=== PATIENT | female | born 1995 | race African-American/Black ===

== ENCOUNTER 2017-01-25 22:07 | Emergency (ER) | payer OTHER ==
[~2017-01-25] VITALS: Ht 170.2 cm; Wt 63.0 kg
[2017-01-25 22:17] VITALS: TEMP 37.1; Ht 170.2 cm; Wt 63.0 kg
[2017-01-25] MEDS ORDERED: ASPI-390 PO (22:50)
[2017-01-25] MEDS ORDERED: ACET-1256 PO (22:50)
[2017-01-25] MEDS ORDERED: MULT-513 PO (22:50)
[2017-01-25 23:09] LABS: BASO % 0.4 %; BASO ABS # 0.03 K/uL (0-0.2); COMPLETE YES; EOS % 1.4 %; IG% 0.3 %; LYMPH ABS # 2.44 K/uL (1.2-3.4); MEAN CORPUSCULAR HEMOGLOBIN 28.4 pg (25-34); MEAN CORPUSCULAR HGB CONC 32.3 g/dl (32-36); MEAN PLATELET VOLUME 11.2 fL (7.4-10.4); MONO % 6.2 %; NEUT % 60.7 %; PLATELET COUNT 210 K/uL (130-400); RED BLOOD COUNT 4.43 M/uL (4.2-5.4); WHITE BLOOD COUNT 7.86 K/uL (4.8-10.8)
[2017-01-25 23:27] LABS: ALT/SGPT 13 U/L (12-78); BLOOD UREA NITROGEN 10 mg/dl (7-18); BUN/CREATININE RATIO 14.9 (10-20); CALCIUM 9.4 mg/dl (8.5-10.1); CARBON DIOXIDE 27 mmol/L (21-32); CHLORIDE 105 mmol/L (98-107); GLUCOSE 75 mg/dl (70-99); POTASSIUM 3.7 mmol/L (3.5-5.1); SODIUM 141 mmol/L (136-145)
[2017-01-25 23:29] LABS: URINE APPEARANCE CLEAR (CLEAR); URINE BILIRUBIN NEG (NEG); URINE COLOR YELLOW; URINE NITRITE NEG (NEG); URINE PH 6.5 (4.5-7.5); URINE SPECIFIC GRAVITY 1.026 (1.000-1.030); UROBILINOGEN NEG (NEG); ZZUR CULT IF INDIC CLEAN CATCH NO
[2017-01-25 23:30] LABS: ALKALINE PHOSPHATASE 72 U/L (45-117); AST/SGOT 16 U/L (15-37)
[2017-01-25 23:41] LABS: MANUAL MICROSCOPIC REQUIRED? NO; REVIEW REQ? NO
[2017-01-25] MEDS ORDERED: OPTIRAY 320 IV PRN (23:45)
[2017-01-25 23:46] LABS: PREG INTERNAL NEGATIVE QC NEG CLEAR BACKGROUND; PREG INTERNAL POSITIVE QC POS CONTROL LINE
--- NOTE | 2017-01-26 01:31 | EMERGENCY ROOM VISIT NOTE ---
History First contact with patient: 22:21 Chief Complaint: ABDOMINAL PAIN Stated Complaint: ABD PAIN Nursing Triage Summary: pt reports lump to left upper abdomen. pt was at the ER over thanksgiving to have it checked out but did not have any scans done. pt reports sharp lower abd pain for the past few days. denies N/V/D. History of Present Illness The patient is a 21 year old female who presents to the Emergency Room with complaints of left upper abdominal discomfort that is enlarged for the past several months and now complains of suprapubic lower abdominal pain for the past 2 days described as aching, ranging in severity 5 out of 10. nothing makes it better or worse. Patient had gonorrhea 3 months ago and was supposed to get rechecked to make sure this cleared. Patient denies chest pain, dyspnea , nausea, vomiting, diarrhea, vaginal itching or discharge, vaginal pain, urinary symptoms, back pain, flank pain. No prior surgeries. She states she does not feel at risk for new STIs. Review of Systems See HPI for pertinent positives & negatives. A total of 10 systems reviewed and were otherwise negative. Past Medical/Surgical History Oral surgery Social History Smoking Status: Never Smoker Smokeless Tobacco Use: No Alcohol Use: occasionally Drug Use: none Marital Status: single Occupation Status: [employer] student Current/Historical Medications Scheduled Hmbcmtq-Nvktuwwfpwaap-Ihcstwus (Excedrin Migraine), 2 TABS PO PRN UD Multivitamins/Minerals (Mvi With Minerals), 1 TAB PO DAILY Scheduled PRN Acetaminophen (Tylenol), 1,000 MG PO Q6 PRN for Headache or Pain Ibuprofen (Advil), 400 MG PO Q6 PRN for Pain Allergies Coded Allergies: No Known Allergies (Unverified , 01/25/17) Physical Exam Vital Signs Date Time Temp Pulse Resp B/P Pulse Ox O2 Delivery O2 Flow Rate FiO2 01/25/17 23:54 75 18 119/72 100 Room Air 01/25/17 22:17 37.1 82 16 128/82 100 Room Air Physical Exam VITALS: Vitals are noted on the nurse's note and reviewed by myself. Vital signs stable. GENERAL: Pleasant female, in no acute distress, nondiaphoretic, well-developed well-nourished. SKIN: The skin was without rashes, erythema, edema, or bruising. There is no tenting of the skin. Capillary reflex less than 2 seconds. HEAD: Normocephalic atraumatic. EARS: External auditory canals clear, tympanic membranes pearly burgess without erythema or effusion bilaterally. EYES: Pupils equal round and reactive to light and accommodation. Conjunctivae without injection, sclerae without icterus. Extraocular movements intact. NOSE: Patent, turbinates without inflammation or discharge. MOUTH: Mucous membranes moist. Pharynx without erythema or exudate. Uvula midline. Airway patent. Tongue does not deviate. NECK: Supple without nuchal rigidity. No lymphadenopathy. No thyromegaly. Cervical spine is nontender. No JVD. HEART: Regular rate and rhythm without murmurs gallops or rubs. LUNGS: Clear to auscultation bilaterally without wheezes, rales or rhonchi. No dullness to percussion. No retractions or accessory muscle use. ABDOMEN: Positive bowel sounds x 4. Normal tympanic percussion. Soft, left upper quadrant slightly enlarged and tender to palpation lower superpubic area, no CVA tenderness Vieira sign negative. No guarding or rebound tenderness. exam: Normal external female genitalia, minimal white discharge in the fall, no CMT or adnexal tenderness. Vp Respiratory present. Cultures taken and sent. MUSCULOSKELETAL: No muscle atrophy, erythema, or edema noted. NEURO: Patient was alert and oriented to person place and time. Normal sensation to light and sharp touch. No focal neurological deficits. Medical Decision & Procedures Laboratory Results 01/25/17 22:40 Red Blood Count 4.43, Mean Corpuscular Volume 88.0, Mean Corpuscular Hemoglobin 28.4, Mean Corpuscular Hemoglobin Concent 32.3, Mean Platelet Volume 11.2, Neutrophils (%) (Auto) 60.7, Lymphocytes (%) (Auto) 31.0, Monocytes (%) (Auto) 6.2, Eosinophils (%) (Auto) 1.4, Basophils (%) (Auto) 0.4, Neutrophils # (Auto) 4.77, Lymphocytes # (Auto) 2.44, Monocytes # (Auto) 0.49, Eosinophils # (Auto) 0.11, Basophils # (Auto) 0.03 01/25/17 22:40 Test 01/25/17 22:35 01/25/17 22:40 01/25/17 22:52 Urine Color YELLOW Urine Appearance CLEAR (CLEAR) Urine pH 6.5 (4.5-7.5) Urine Specific Mize 1.026 (1.000-1.030) Urine Protein NEG (NEG) Urine Glucose (UA) NEG (NEG) Urine Ketones TRACE (NEG) Urine Occult Blood NEG (NEG) Urine Nitrite NEG (NEG) Urine Bilirubin NEG (NEG) Urine Urobilinogen NEG (NEG) Urine Leukocyte Esterase NEG (NEG) White Blood Count 7.86 K/uL (4.8-10.8) Red Blood Count 4.43 M/uL (4.2-5.4) Hemoglobin 12.6 g/dL (12.0-16.0) Hematocrit 39.0 % (37-47) Mean Corpuscular Volume 88.0 fL (80-100) Mean Corpuscular Hemoglobin 28.4 pg (25-34) Mean Corpuscular Hemoglobin Concent 32.3 g/dl (32-36) Platelet Count 210 K/uL (130-400) Mean Platelet Volume 11.2 fL (7.4-10.4) Neutrophils (%) (Auto) 60.7 % Lymphocytes (%) (Auto) 31.0 % Monocytes (%) (Auto) 6.2 % Eosinophils (%) (Auto) 1.4 % Basophils (%) (Auto) 0.4 % Neutrophils # (Auto) 4.77 K/uL (1.4-6.5) Lymphocytes # (Auto) 2.44 K/uL (1.2-3.4) Monocytes # (Auto) 0.49 K/uL (0.11-0.59) Eosinophils # (Auto) 0.11 K/uL (0-0.5) Basophils # (Auto) 0.03 K/uL (0-0.2) RDW Standard Deviation 43.8 fL (36.4-46.3) RDW Coefficient of Variation 13.6 % (11.5-14.5) Immature Granulocyte % (Auto) 0.3 % Immature Granulocyte # (Auto) 0.02 K/uL (0.00-0.02) Anion Gap 9.0 mmol/L (3-11) Est Creatinine Clear Calc Drug Dose 124.7 ml/min Estimated GFR () 144.6 Estimated GFR (Non- 124.7 BUN/Creatinine Ratio 14.9 (10-20) Calcium Level 9.4 mg/dl (8.5-10.1) Total Bilirubin 0.3 mg/dl (0.2-1) Direct Bilirubin < 0.1 mg/dl (0-0.2) Aspartate Amino Transf (AST/SGOT) 16 U/L (15-37) Alanine Aminotransferase (ALT/SGPT) 13 U/L (12-78) Alkaline Phosphatase 72 U/L (45-117) Total Protein 8.4 gm/dl (6.4-8.2) Albumin 4.2 gm/dl (3.4-5.0) Lipase 184 U/L (73-393) Human Chorionic Gonadotropin, Qual NEG (NEG) Monoscreen NEG (NEG) ED Course Prior records/ancillary studies reviewed. Triage Nursing notes reviewed. The patient's history was concerning for abdominal pain. Differential diagnosis: Etiologies such as salpingitis, , ectopic , incomplete , septic , ruptured ovarian cyst, ovarian torsion, Mittelschmerz , endometritis, dysmenorrhea, appendicitis, PID, diverticulitis, PUD, biliary pathology, UTI, pancreatitis, obstruction, mesenteric ischemia, aortic pathology , infections, inflammatory bowel disease, renal colic, as well as others were entertained. Physical examination findings: As above. ER treatment provided: iv fluids On reassessment the patient felt better. Diagnostics interpreted by me: The labs revealed negative hCG. No worrisome leukocytosis or electrolyte abnormality. Imaging studies: CT ABDOMEN & PELVIS: 3 cm cystic lesion right ovary May correlate further with pelvic ultrasound Normal caliber appendix without secondary signs No bowel dilation or free air Asymmetrically longer appearing left lower ribs and possible mild stranding at the costochondral junction at the left upper quadrant, nonspecific Radiologist: Pablo Boucher M.D. US PELVIC/ENDOVA mm endometrial stripe Left ovary within limits 3.7 x 2.7 x 3.2 cm complex cystic lesion right ovary may represent hemorrhagic cyst or endometrioma There is evidence of vascular flow to the right ovarian tissue No evidence of adnexal mass or free fluid Radiologist: Pablo Boucher M.D. Exam and history seems consistent with hemorrhagic cyst and asymmetric lower left ribs. Patient was advised repeat pelvic ultrasound in 6 weeks for resolution of cyst. She is advised follow-up health services in a few days or here in the ER sooner for abdominal pain, fevers, vomiting, worsening signs or symptoms or as needed. She is advised to obtain her culture results from health services or call back to the ER 3 days.By the evaluation outlined above emergent etiologies such as appendicitis, diverticulitis, PUD, biliary pathology , UTI, pancreatitis, obstruction, mesenteric ischemia, aortic pathology, infections, inflammatory bowel disease, renal colic, as well as others were deemed relatively unlikely. The pt informed about the findings as listed above. All questions were answered and pleased with the treatment. Return instructions were outlined and the patient was discharged in stable condition. Referral: The patient was referred back to their primary care physician for follow-up in 2 to 3 days for a recheck of the current condition. case reviewed with my Attending. Medical Decision as above Impression Primary Impression: Right ovarian cyst Additional Impression: asymmetric rib, left Departure Information Dispostion Home / Self-Care Condition GOOD Referrals No Doctor, Assigned (PCP) Patient Instructions My [facility] Additional Instructions Ibuprofen(Motrin, Advil) may be used for fever or pain. Use 600mg every six hours as needed. Take with food. Avoid using more than 2400mg in a 24 hour period. Do not use 2400mg per day for more than three consecutive days without physician direction. Prolonged inappropriate use can lead to stomach upset or ulcers. (AND/OR) Acetaminophen(Tylenol) may be used for fever or pain. Use 1000mg every six hours as needed. Avoid using more than 3000mg in a 24 hour period. Rest and drink plenty of fluids as tolerated. Continue current medications. Avoid strenuous activities and anything that worsens your pain. Resume normal activities once your symptoms resolve. Repeat pelvic ultrasound in 6 weeks for resolution of cyst. You can Follow-up with OB for this. Return to the ER immediately for worsening or persistent abdominal pain, vomiting, fevers, chest pains, difficulty breathing, worsening of your condition , or as needed. Follow up with health services in 3-4 days for a recheck of your current condition and for culture results or call back to the ER in 3 days. Recommend to abstain from intercourse until culture results are reviewed. Problem Qualifiers
[2017-01-26 01:38] VITALS: BP 121/76; PULSE 79; O2SAT 100
--- NOTE | 2017-01-26 07:19 | DIAGNOSTIC IMAGING REPORT ---
ULTRASOUND OF THE PELVIS CLINICAL HISTORY: Suprapubic pelvic pain. COMPARISON STUDY: No priors. TECHNIQUE: Real-time, grayscale, and color flow sonography of the pelvis is performed both transabdominally and endovaginally. Images are reviewed in the transverse and longitudinal planes. FINDINGS: Uterus: The uterus is normal in size and echotexture, measuring 7.8 x 3.1 x 4.2 cm. Nabothian cysts are incidentally noted in the cervix. Endometrium: The endometrium is normal in appearance, and the endometrial stripe is normal in thickness measuring up to 0.9 cm. Ovaries: The ovaries are normal in size and morphology. The right ovary measures 4.3 x 3.0 x 4.5 cm and the left ovary measures 3.1 x 1.9 x 2.2 cm. There are bilateral ovarian follicles. A 3.7 x 2.7 x 3.2 cm complex cystic lesion is identified in the right ovary. Normal Doppler waveforms are shown within both ovaries. Pelvis: There is no free fluid in the cul-de-sac. No concerning adnexal lesion is seen. IMPRESSION: 1. There is a 3.2 cm complex cystic lesion identified in the right ovary. This likely represents a complex/hemorrhagic cyst or less likely an endometrioma. Precautionary sonographic follow-up in 2-3 menstrual cycles is recommended to document resolution. 2. There is no sonographic evidence of ovarian torsion at the time of examination. 3. The left ovary is normal in appearance. Electronically signed by: Dong Covarrubias M.D. 01/26/2017 7:18 AM Dictated Date/Time: 01/26/2017 7:16 AM
--- NOTE | 2017-01-26 07:34 | DIAGNOSTIC IMAGING REPORT ---
CT SCAN OF THE ABDOMEN AND PELVIS WITH IV CONTRAST CLINICAL HISTORY: Lower abdominal pain. COMPARISON STUDY: Pelvic ultrasound dated 01/25/2017. TECHNIQUE: Following the IV administration of 116 cc of Optiray 320, CT scan of the abdomen and pelvis is performed from the lung bases to the proximal femora. Images are reviewed in the axial, sagittal, and coronal planes. IV contrast was administered without complication. Automated dose control exposure was utilized. CT DOSE: 277.83 mGy.cm FINDINGS: Lung bases: The heart is normal in size and without pericardial effusion. The lung bases are clear. Liver: The contrast-enhanced liver is normal in size, contour, and attenuation. There is no intrahepatic biliary ductal dilatation. The hepatic veins and portal veins are patent. Gallbladder: Unremarkable. Spleen: Normal in size and attenuation. Pancreas: Unremarkable. Adrenal glands: Unremarkable. Kidneys: The contrast enhanced kidneys are normal in size and without hydronephrosis. The kidneys enhance symmetrically. Abdominal vasculature: The abdominal aorta is normal in course and caliber. Bowel: The small bowel and colon are normal in course and caliber. Moderate fecal retention is seen throughout the colon. The appendix is well-visualized and normal. Peritoneum: There is no intraperitoneal free air or abdominal ascites. There is a small fat-containing umbilical hernia. A naval piercing is noted. Lymphadenopathy: None. Pelvic viscera: The bladder, uterus, and adnexa are normal as visualized. There are bilateral ovarian follicles. A 3.0 cm dominant follicle is noted on the right. Skeletal structures: No lytic or blastic lesions are seen. IMPRESSION: 1. There are no acute infectious or inflammatory findings in the abdomen or pelvis. 2. Moderate constipation. Electronically signed by: Dong Covarrubias M.D. 01/26/2017 7:33 AM Dictated Date/Time: 01/26/2017 7:23 AM
[2017-01-30 11:56] LABS: CHLAMYDIA TRACH RNA*** DETECTED (NOT DETECTED); GC (NEIS GONORRHOEAE)RNA** NOT DETECTED (NOT DETECTED)
--- NOTE | 2017-01-31 15:00 | Pharmacy Progress Note ---
ED Pharmacist Culture FollowUp Date of Service: Jan 31, 2017. Called patient regarding positive Chlamydia trachomatis serology. Informed of result. Prescription for azithromycin 1 g po once called to [facility] at the patient's request. Counseled to abstain from intercourse x2 weeks after antibiotic, refer partner(s) for evaluation, and re-test with outpatient provider in 3 months. Counseled to see provider sooner for worsening pelvic pain. Patient acknowledged understanding. Case discussed with Dr. Solitario, who is the prescribing provider.
== END 2017-01-26 01:38 | disposition home or self-care (01) ==
LOC: C.EDB 22:11 → C.EDC 01-26 01:38
DX: N83.201 Unspecified ovarian cyst, right side (principal); M89.8X9 Other specified disorders of bone, unspecified site

== ENCOUNTER 2017-02-01 03:54 | Emergency (ER) | payer OTHER ==
[~2017-02-01] VITALS: Ht 170.2 cm; Wt 65.5 kg
[~2017-02-01 03:54] MED LIST: ACET-1256 PO; ASPI-390 PO; MULT-513 PO
[2017-02-01 03:57] VITALS: Ht 170.2 cm; Wt 65.5 kg
[2017-02-01] MEDS ORDERED: LIDOCAINE HCL 2% VISC SOLN 20 ML UDC PO STA (04:15)
[2017-02-01] MEDS ORDERED: ALUMINUM/MAGNESIUM SUSP 30 ML UDC PO STA (04:15)
[2017-02-01] MEDS ORDERED: SUCRALFATE 1 GM/10 ML UDC PO STA (05:04)
[2017-02-01 05:33] LABS: BASO % 0.4 %; BASO ABS # 0.03 K/uL (0-0.2); COMPLETE YES; EOS % 1.3 %; HEMATOCRIT 36.3 % (37-47); IG% 0.1 %; LYMPH % 30.9 %; LYMPH ABS # 2.15 K/uL (1.2-3.4); MEAN CELL VOLUME 86.6 fL (80-100); MEAN CORPUSCULAR HEMOGLOBIN 28.4 pg (25-34); MEAN CORPUSCULAR HGB CONC 32.8 g/dl (32-36); MEAN PLATELET VOLUME 10.8 fL (7.4-10.4); MONO % 7.8 %; NEUT % 59.5 %; PLATELET COUNT 203 K/uL (130-400); RED BLOOD COUNT 4.19 M/uL (4.2-5.4); WHITE BLOOD COUNT 6.95 K/uL (4.8-10.8)
[2017-02-01 05:51] LABS: BUN/CREATININE RATIO 18.5 (10-20); CALCIUM 8.5 mg/dl (8.5-10.1); CREATININE 0.67 mg/dl (0.60-1.20); POTASSIUM 4.1 mmol/L (3.5-5.1)
[2017-02-01] MEDS ORDERED: PANTOprazole SOD 40 MG TAB PO STA (05:55)
[2017-02-01] MEDS ORDERED: PANT40TA PO (05:58)
--- NOTE | 2017-02-01 05:58 | EMERGENCY ROOM VISIT NOTE ---
History First contact with patient: 04:05 Chief Complaint: ABDOMINAL PAIN Stated Complaint: STOMACH ACHE Nursing Triage Summary: Patient reports abdominal pain for the past hour. Denies N/V/D. History of Present Illness The patient is a 21 year old female who presents to the Emergency Room with complaints of epigastric discomfort with sour taste in stomach with burning sensation after eating hot wings and fries with some alcohol tonight. Patient denies chest pain, dyspnea, fever, chills, nausea, vomiting, diarrhea, black or blood in her stool. No other complains per patient. Review of Systems See HPI for pertinent positives & negatives. A total of 10 systems reviewed and were otherwise negative. Past Medical/Surgical History None Social History Smoking Status: Never Smoker Alcohol Use: occasionally Drug Use: none Marital Status: single Occupation Status: [employer] student Current/Historical Medications Scheduled Mrqxolz-Voozhjtvrklwc-Ginoqbmr (Excedrin Migraine), 2 TABS PO PRN UD Multivitamins/Minerals (Mvi With Minerals), 1 TAB PO DAILY Scheduled PRN Acetaminophen (Tylenol), 1,000 MG PO Q6 PRN for Headache or Pain Ibuprofen (Advil), 400 MG PO Q6 PRN for Pain Allergies Coded Allergies: No Known Allergies (Unverified , 01/25/17) Physical Exam Vital Signs Date Time Temp Pulse Resp B/P Pulse Ox O2 Delivery O2 Flow Rate FiO2 02/01/17 05:33 76 18 106/51 94 Room Air 02/01/17 03:57 37.1 93 18 109/70 98 Room Air Physical Exam VITALS: Vitals are noted on the nurse's note and reviewed by myself. Vital signs stable. GENERAL: Pleasant female, in no acute distress, nondiaphoretic, well-developed well-nourished. SKIN: The skin was without rashes, erythema, edema, or bruising. There is no tenting of the skin. Capillary reflex less than 2 seconds. HEAD: Normocephalic atraumatic. EARS: External auditory canals clear, tympanic membranes pearly burgess without erythema or effusion bilaterally. EYES: Pupils equal round and reactive to light and accommodation. Conjunctivae without injection, sclerae without icterus. Extraocular movements intact. NOSE: Patent, turbinates without inflammation or discharge. MOUTH: Mucous membranes moist. Pharynx without erythema or exudate. Uvula midline. Airway patent. Tongue does not deviate. NECK: Supple without nuchal rigidity. No lymphadenopathy. No thyromegaly. Cervical spine is nontender. No JVD. HEART: Regular rate and rhythm without murmurs gallops or rubs. LUNGS: Clear to auscultation bilaterally without wheezes, rales or rhonchi. No dullness to percussion. No retractions or accessory muscle use. ABDOMEN: Positive bowel sounds x 4. Normal tympanic percussion. Soft, nontender, without masses or organomegaly. Vieira sign negative. No guarding or rebound tenderness. No CVA tenderness MUSCULOSKELETAL: No muscle atrophy, erythema, or edema noted. NEURO: Patient was alert and oriented to person place and time. Normal sensation to light and sharp touch. No focal neurological deficits. Medical Decision & Procedures Laboratory Results 02/01/17 05:20 Red Blood Count 4.19, Mean Corpuscular Volume 86.6, Mean Corpuscular Hemoglobin 28.4, Mean Corpuscular Hemoglobin Concent 32.8, Mean Platelet Volume 10.8, Neutrophils (%) (Auto) 59.5, Lymphocytes (%) (Auto) 30.9, Monocytes (%) (Auto) 7.8, Eosinophils (%) (Auto) 1.3, Basophils (%) (Auto) 0.4, Neutrophils # (Auto) 4.13, Lymphocytes # (Auto) 2.15, Monocytes # (Auto) 0.54, Eosinophils # (Auto) 0.09, Basophils # (Auto) 0.03 02/01/17 05:20 Test 02/01/17 05:20 White Blood Count 6.95 K/uL (4.8-10.8) Red Blood Count 4.19 M/uL (4.2-5.4) Hemoglobin 11.9 g/dL (12.0-16.0) Hematocrit 36.3 % (37-47) Mean Corpuscular Volume 86.6 fL (80-100) Mean Corpuscular Hemoglobin 28.4 pg (25-34) Mean Corpuscular Hemoglobin Concent 32.8 g/dl (32-36) Platelet Count 203 K/uL (130-400) Mean Platelet Volume 10.8 fL (7.4-10.4) Neutrophils (%) (Auto) 59.5 % Lymphocytes (%) (Auto) 30.9 % Monocytes (%) (Auto) 7.8 % Eosinophils (%) (Auto) 1.3 % Basophils (%) (Auto) 0.4 % Neutrophils # (Auto) 4.13 K/uL (1.4-6.5) Lymphocytes # (Auto) 2.15 K/uL (1.2-3.4) Monocytes # (Auto) 0.54 K/uL (0.11-0.59) Eosinophils # (Auto) 0.09 K/uL (0-0.5) Basophils # (Auto) 0.03 K/uL (0-0.2) RDW Standard Deviation 42.8 fL (36.4-46.3) RDW Coefficient of Variation 13.4 % (11.5-14.5) Immature Granulocyte % (Auto) 0.1 % Immature Granulocyte # (Auto) 0.01 K/uL (0.00-0.02) Anion Gap 4.0 mmol/L (3-11) Est Creatinine Clear Calc Drug Dose 130.3 ml/min Estimated GFR () 146.7 Estimated GFR (Non- 126.5 BUN/Creatinine Ratio 18.5 (10-20) Calcium Level 8.5 mg/dl (8.5-10.1) Medications Administered Medications (Trade) Dose Ordered Sig/Willam Route Start Time Stop Time Status Last Admin Dose Admin Lidocaine HCl (Viscous Lidocaine 2% Soln) 10 ml NOW STAT PO 02/01/17 04:15 02/01/17 04:16 DC 02/01/17 04:24 10 ML Al Hydroxide/Mg Hydroxide (Maalox Susp) 30 ml NOW STAT PO 02/01/17 04:15 02/01/17 04:16 DC 02/01/17 04:24 30 ML Sucralfate (Carafate Susp) 1 gm NOW STAT PO 02/01/17 05:04 02/01/17 05:05 DC 02/01/17 05:31 1 GM ED Course Prior records/ancillary studies reviewed. Triage Nursing notes reviewed. Additional history obtained from friend The patient's history was concerning for epigastric discomfort. Differential diagnosis: Etiologies such as reflux, gastritis, appendicitis, diverticulitis, PUD, biliary pathology, UTI, pancreatitis, obstruction, mesenteric ischemia, aortic pathology, infections, inflammatory bowel disease, renal colic, as well as others were entertained. Physical examination findings: As above. ER treatment provided: GI cocktail On reassessment the patient felt better. Diagnostics interpreted by me: mild anemia, no worrisome electrolyte abnormality Exam and history seem consistent with gastritis, GERD. Patient fell 100% after being medicated as above. She did not have an acute abdomen on exam. She declined further workup and I felt this is reason all. She is advised take omeprazole for next 2 weeks and avoid acidic foods and excessive amounts of coffee. She is advised to follow-up health services in a few days or here in the ER sooner for abdominal pain, fevers, vomiting, black or blood in the stool , worsening signs or symptoms or as needed. She is advised to try Maalox and or Zantac for breakthrough symptoms. By the evaluation outlined above emergent etiologies such as appendicitis, diverticulitis, PUD, biliary pathology, UTI, pancreatitis, obstruction, mesenteric ischemia, aortic pathology, infections, inflammatory bowel disease, renal colic, as well as others were deemed relatively unlikely. The pt informed about the findings as listed above. All questions were answered and pleased with the treatment. Return instructions were outlined and the patient was discharged in stable condition. Outpatient prescription management: Protonix Referral: The patient was referred back to their primary care physician for follow-up in 2 to 3 days for a recheck of the current condition. Case reviewed with my attending Medical Decision As above Impression Primary Impression: GERD (gastroesophageal reflux disease) Departure Information Dispostion Home / Self-Care Condition GOOD Referrals No Doctor, Assigned (PCP) Patient Instructions My [facility] Additional Instructions Protonix 40 m tablet daily for the next 2 weeks. Avoid spicy or acidic foods. You can try Maalox or Zantac for acute relief of symptoms. Rest and drink plenty of fluids as tolerated. Continue current medications. Return to the ER immediately for worsening or persistent abdominal pain, vomiting, fevers, chest pains, difficulty breathing, worsening of your condition , or as needed. Follow up with your primary physician in 2-3 days for a recheck of your current condition. Problem Qualifiers Primary Impression: GERD (gastroesophageal reflux disease) Esophagitis presence: esophagitis presence not specified Qualified Codes: K21.9 - Gastro-esophageal reflux disease without esophagitis
[2017-02-01 06:03] VITALS: BP 106/51; PULSE 76; TEMP 37.1; O2SAT 94
== END 2017-02-01 06:05 | disposition home or self-care (01) ==
LOC: C.EDB 03:55
DX: K21.9 Gastro-esophageal reflux disease without esophagitis (principal)

== ENCOUNTER 2017-08-13 16:06 | Emergency (ER) | payer OTHER ==
[~2017-08-13] VITALS: Ht 170.2 cm; Wt 64.4 kg
[2017-08-13 16:29] VITALS: BP 136/88; PULSE 74; TEMP 37.3; O2SAT 99; Ht 170.2 cm; Wt 64.4 kg
--- NOTE | 2017-08-13 17:17 | EMERGENCY ROOM VISIT NOTE ---
History First contact with patient: 16:36 Chief Complaint: ANKLE PAIN Stated Complaint: LF ACHILLES WITH SEVERE PAIN History of Present Illness The patient is a 21 year old female who presents to the Emergency Room with complaints of a 2 week history of right Achilles pain. The patient does not recall an inciting event like rolling her ankle or any trauma to the ankle. She states that the pain continually worsened throughout the week until it was unbearable and was unable to walk to classes due to the discomfort. She says that last week at its worst it was a 9/10 pain. She has tried Ibuprofen 600mg BID, icing, heating, and resting with no improvement. 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 She denies ever hearing any popping sensation. She does think there has been increased swelling over the left Achilles compared to the right. Review of Systems See HPI for pertinent positives and negatives. A total of ten systems were reviewed and were otherwise negative. 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 Oropharynx unremarkable. EYES: Normal conjunctiva. Sclera non-icteric. NECK: Supple. No nuchal rigidity. FROM. No JVD. RESPIRATORY: Clear to auscultation. CARDIAC: Regular rate, normal rhythm. Extremities warm and well perfused. Pulses equal. ABDOMEN: Soft, non-distended. No tenderness to palpation. No rebound or guarding. No masses. RECTAL: Deferred. MUSCULOSKELETAL: Chest examination reveals no tenderness. The back is symmetrical on inspection without obvious abnormality. There is no CVA tenderness to palpation. No joint edema. LOWER EXTREMITIES: Calves are equal size bilaterally and non-tender. No edema. No discoloration. Left Marie test negative. Some acute swelling (knot) over the midpoint of the Achilles tendon. Full ROM of the left ankle. Acute tenderness over the knot of the left Achilles. NEURO: Normal sensorium. No sensory or motor deficits noted. SKIN: No rash or jaundice noted. Medical Decision & Procedures ED Course Patient is a 21 year old female that presents with a 2 weeks history of left ankle pain - Physical exam revealed a knot over the left Achilles tendon, most likely signifying an Achilles tendonitis - Left ankle and foot X-rays show no acute abnormalities - No weakness or deficit in ROM of the left ankle Medical Decision Patient is a 21 year old female that presents with a 2 weeks history of left ankle pain Differential diagnosis for left ankle pain includes Achilles tendonitis, Achilles tear, Achilles bursitis, ankle fracture, metatarsal fracture, arthritis , and other etiologies were considered - Physical exam is suggestive of left ankle Achilles tendonitis based on acute knot over the Achilles tendon and history of repetitive jumping with Basketball - X-ray of the left foot and ankle was negative for any acute fractures or abnormalities - Differential still includes partial Achilles tear - Patient suggested to follow up with Orthopaedics as outpatient Medication Reconcilliation Current Medication List: was personally reviewed by me Blood Pressure Screening Patient's blood pressure: Normal blood pressure Impression Primary Impression: Achilles tendinitis, left leg Departure Information Dispostion Home / Self-Care Condition GOOD Referrals No Doctor, Assigned (PCP) Patient Instructions My [facility] Resident Tracking Resident Involvement: Resident Care Provided Care Provided: Adult ED
--- NOTE | 2017-08-13 17:31 | DIAGNOSTIC IMAGING REPORT ---
ANKLE MIN 3 VIEWS ROUTINE CLINICAL HISTORY: Left ankle pain COMPARISON: None. DISCUSSION: No fractures or dislocations are visualized. The ankle mortise appears intact on these nonstress views. IMPRESSION: No fractures or dislocations identified. Electronically signed by: Aj Green M.D. 08/13/2017 5:30 PM Dictated Date/Time: 08/13/2017 5:29 PM
--- NOTE | 2017-08-13 17:32 | DIAGNOSTIC IMAGING REPORT ---
FOOT MIN 3 VIEWS ROUTINE CLINICAL HISTORY: Lateral foot pain COMPARISON: None. DISCUSSION: No fractures or dislocations are visualized. There are no erosive or destructive changes. IMPRESSION: 1. No fractures identified 2. No evidence of erosive disease. Electronically signed by: Aj Green M.D. 08/13/2017 5:31 PM Dictated Date/Time: 08/13/2017 5:31 PM
--- NOTE | 2017-08-13 22:06 | EMERGENCY ROOM VISIT NOTE ---
History Report prepared by Markieibyolanda: Mao Palafox Under the Supervision of: Dr. Levon Castaneda M.D. First contact with patient: 16:36 Chief Complaint: ANKLE PAIN Stated Complaint: LF ACHILLES WITH SEVERE PAIN History of Present Illness The patient is a 21 year old female who presents to the Emergency Room with complaints of worsening left posterior ankle pain that started two weeks ago. She rates her pain as a 9/10 in severity. The patient reports that the pain radiates to the medial aspect of the front of her foot when she walks. She states that she noticed left ankle pain two weeks ago, but reports that she does not recall a specific injury or event that caused the pain. The patient states that the pain worsened last week to the point where she could not ambulate. She reports that she has been trying 600 mg Ibuprofen TID, icing, heating, and resting, but denies any relief of pain. The patient admits that she plays basketball and exercises. She denies any injury or trauma Source of History: patient Onset: 2 weeks ago Position: ankle (left) Symptom Intensity: 9/10 Timing: worsening Modifying Factors (Relieving): rest, ibuprofen, ice, heat Review of Systems See HPI for pertinent positives & negatives. A total of 10 systems reviewed and were otherwise negative. Past Medical & Surgical The patient reports no pertinent medical or surgical history. Family History Patient reports no known family medical history. Social History Smoking Status: Current Every Day Smoker Alcohol Use: occasionally Drug Use: none Marital Status: single Housing Status: lives with roommate Occupation Status: [employer] student Current/Historical Medications Scheduled PRN Ibuprofen (Advil), 400 MG PO Q6 PRN for Pain Allergies Coded Allergies: No Known Allergies (Unverified , 02/01/17) Physical Exam Vital Signs Date Time Temp Pulse Resp B/P (MAP) Pulse Ox O2 Delivery O2 Flow Rate FiO2 08/13/17 16:29 37.3 74 20 136/88 99 Room Air Physical Exam Constitutional: Vital signs reviewed. Musculoskeletal: No peripheral edema. Tenderness along Achilles tendon without swelling or erythema. Negative Marie sign for injury. Normal distal pulses. No erythema, increased warmth or discoloration. Integumentary: No cyanosis. Neurological: The patient is awake and alert. No focal deficits. Normal motor function of the left ankle. Psychiatric: Normal affect. Medical Decision & Procedures ER Provider Diagnostic Interpretation: X-ray results as stated below per interpretation by me and the radiologist: FOOT MIN 3 VIEWS ROUTINE CLINICAL HISTORY: Lateral foot pain COMPARISON: None. DISCUSSION: No fractures or dislocations are visualized. There are no erosive or destructive changes. IMPRESSION: 1. No fractures identified 2. No evidence of erosive disease. Electronically signed by: Aj Green M.D. 08/13/2017 5:31 PM Dictated Date/Time: 08/13/2017 5:31 PM ANKLE MIN 3 VIEWS ROUTINE CLINICAL HISTORY: Left ankle pain COMPARISON: None. DISCUSSION: No fractures or dislocations are visualized. The ankle mortise appears intact on these nonstress views. IMPRESSION: No fractures or dislocations identified. Electronically signed by: Aj Green M.D. 08/13/2017 5:30 PM Dictated Date/Time: 08/13/2017 5:29 PM ED Course 1728: The patient was evaluated in room D05. A complete history and physical exam was performed. 1805: Upon reevaluation, the patient appeared to have improvement of her symptoms. The resident discussed tonight's findings with the patent. She verbalized agreement of the treatment plan. The was discharged home. Medical Decision This a 21-year-old female who presents with right ankle pain. Differential diagnosis includes Achilles bursitis, tendinitis, stress fracture, plantar fasciitis. I did perform a limited focused review of portions of the patient's old chart on the electronic medical record. The patient has had no recent pertinent visits to this hospital. I did evaluate the patient as noted above. The patient is presenting with left ankle pain over the past 2 weeks. She denies any injury. She has tenderness over the Achilles tendon but no signs of functional deficit or Achilles tendon rupture. She denies any recent injury but does play basketball. X-rays of the foot and ankle did not show any acute injury. She was advised follow up with a orthopedic physician for further evaluation of her symptoms. She was offered crutches and discharged with a school note. Resident Physician Supervision Note: I did evaluate and examine this patient myself. I did guide management for the patient. I agree with the resident's (Dr. Hurtado) assessment as discussed. Please see the resident's dictation for further details. Medication Reconcilliation Current Medication List: was personally reviewed by me Blood Pressure Screening Patient's blood pressure: Elevated blood pressure Impression Primary Impression: Left ankle pain Scribe Attestation The scribe's documentation has been prepared under my direct and personally reviewed by me in its entirety. I confirm that the note above accurately reflects all work, treatment, procedures, and medical decision making performed by me. Departure Information Dispostion Home / Self-Care Referrals No Doctor, Assigned (PCP) Forms HOME CARE DOCUMENTATION FORM, IMPORTANT VISIT INFORMATION Patient Instructions My [facility] Additional Instructions You have been examined and treated today on an emergency basis only. This is not a substitute for, or an effort to provide, complete comprehensive medical care. It is impossible to recognize and treat all injuries or illnesses in a single emergency department visit. It is therefore important that you follow up closely with your physician. Call as soon as possible for an appointment. Return for worsening symptoms or if you develop worsening swelling, difficulty walking, change in color of the foot, or any other concerning symptoms - You were seen for left ankle pain and diagnosed with Achilles Tendonitis - Your left ankle and foot X-rays were negative for any fractures - Take Naproxen (Alieve) 500mg twice daily for left ankle pain - Continue resting you left ankle as much as possible to prevent further injury to the ankle - If you continue to have worsening symptoms we recommend you follow up with orthopaedic surgery for further evaluation Problem Qualifiers Primary Impression: Left ankle pain Chronicity: acute Qualified Codes: M25.572 - Pain in left ankle and joints of left foot
[2017-08-13] MEDS ORDERED: IBUP-1050 PO (22:50)
== END 2017-08-13 18:23 | disposition home or self-care (01) ==
LOC: C.EDB 16:07 → C.EDD 18:23
DX: M76.62 Achilles tendinitis, left leg (principal); M25.572 Pain in left ankle and joints of left foot; F17.200 Nicotine dependence, unspecified, uncomplicated

== ENCOUNTER → 2017-10-19 | Outpatient (CLI) | payer OTHER ==
[~2017-10-19] MED LIST changes: -ACET-1256 PO; -ASPI-390 PO; +IBUP-1050 PO; -MULT-513 PO
== END | disposition home or self-care (01) ==
LOC: C.LAB 03:03
DX: Z02.83 Encounter for blood-alcohol and blood-drug test (principal)